=== PATIENT | male | born 1950 | race Caucasian/White ===

== ENCOUNTER → 2019-10-11 15:16 | Outpatient (CLI) | payer MEDICARE, OTHER, SELFPAY ==
[2019-10-11 15:28] LABS: Basophils # 0.1 K/mm3 (0-0.2); Basophils % 1.1 % (0.1-2.0); Eosinophils # 0.2 K/mm3 (0.0-0.4); Eosinophils % 3.4 % (0.1-12.0); Hematocrit 46.1 % (42.0-52.0); Lymphocytes # 1.6 K/mm3 (0.7-4.5); Lymphocytes % 23.8 % (10-50); Mean Corpuscular HGB Conc 32.6 g/dL (31.8-35.4); Mean Platelet Volume 8.4 fl (7.4-10.4); Monocytes # 0.4 K/mm3 (0.1-1.0); Monocytes % 5.8 % (1.7-9.3); Neutrophils # 4.4 K/mm3 (1.8-7.8); Neutrophils % 65.9 % (37.0-80.0); Platelet Count 247 K/mm3 (142-424); Red Blood Count 4.86 M/mm3 (4.60-6.20); Red Cell Distribution Width 12.4 % (11.5-17.5); White Blood Count 6.6 K/mm3 (4.8-10.8)
== END ==
PROVIDERS: Visit Provider Surgery
DX: K04.7 Periapical abscess without sinus (principal)
CPT/HCPCS: 36415; 85025

== ENCOUNTER → 2019-10-18 13:59 | Outpatient (CLI) | payer MEDICARE, OTHER, SELFPAY ==
--- NOTE | 2019-10-18 14:03 | ECG_ITS ---
APPROVED REPORT Exam: Resting ECG HR:71 bpm ECG Measurements Heart Rate 71 AXES MD 140 P 31 QRSd 92 QRS 31 QT 366 T 7 QTc 397 <Conclusion> Normal sinus rhythm Normal ECG Electronically signed by : Cruzito Darnell, 10/18/2019 18:58:03
== END ==
PROVIDERS: PCP Family Medicine; Visit Provider Surgery
DX: K81.1 Chronic cholecystitis (principal)
CPT/HCPCS: 93005

== ENCOUNTER → 2020-10-11 14:17 | Outpatient (CLI) | payer MEDICARE, OTHER, SELFPAY ==
--- NOTE | 2020-10-11 14:34 | US_ITS ---
PROCEDURE: US TESTICULAR CLINICAL INDICATION: ENLARGEMENT OF SCROTAL SAC COMPARISON: No exams were available for comparison FINDINGS: There is a large right hydrocele. The right testicle has an unremarkable appearance at 5 x 2 x 3 cm. Blood flow is present to the right testicle. No testicular mass. The left testicle is 5 x 3 x 2 cm. Blood flow is present. No obvious mass. No epididymal lesions. IMPRESSION: Large right hydrocele Dictated by: Josef Mccormack MD 10/11/2020 18:20 Josef Mccormack MD in [facility] 10/11/2020 18:20
== END ==
PROVIDERS: PCP Family Medicine; Visit Provider Family Medicine
DX: N50.89 Other specified disorders of the male genital organs (principal)
CPT/HCPCS: 76870